=== PATIENT | male | born 1975 | race African-American/Black ===

== ENCOUNTER 2024-08-31 09:22 | Emergency (ER) | payer MEDICAID ==
[~2024-08-31] VITALS: Ht 193 cm; Wt 113.3 kg
[2024-08-31 09:30] VITALS: O2SAT 99
[2024-08-31 10:26] LABS: BASOPHILS % 0.3 % (0.0-2.0); EOSINOPHILS % 2.1 % (0.0-5.0); HEMATOCRIT. 46.3 % (42.0-52.0); HEMOGLOBIN. 15.1 g/dL (14.0-18.0); LYMPHOCYTES % 39.1 % (20.0-50.0); MEAN CORPUSCULAR HEMOGLOBIN 29.9 pg (28.0-32.0); MEAN CORPUSCULAR HGB CONC 32.6 g/dL (31.0-37.0); MEAN CORPUSCULAR VOLUME 91.5 fL (80.0-94.0); MEAN PLATELET VOLUME 7.7 fl (7.4-10.4); MONOCYTES % 8.8 % (2.0-8.0); NEUTROPHILS % 49.7 % (40.0-76.0); PLATELET 230 x1000/uL (130-400); RED BLOOD CELL COUNT 5.06 mill/uL (4.7-6.1); RED CELL DISTRIBUTION WIDTH 13.7 % (11.6-14.6); WHITE BLOOD COUNT 10.1 x1000/uL (4.5-11.0)
[2024-08-31 10:55] LABS: CHLORIDE 106 mEq/L (98-107); SODIUM 140 mEq/L (136-145)
[2024-08-31 10:56] LABS: CALCIUM 9.8 mg/dL (8.7-10.4); CARBON DIOXIDE 26 mEq/L (21-32)
[2024-08-31 11:01] LABS: CREATININE 0.9 mg/dL (0.6-1.3); GLUCOSE 94 mg/dL (70-105); UREA NITROGEN BLOOD 10 mg/dL (9-23)
[2024-08-31 11:03] LABS: ALANINE AMINOTRANSFERASE 14 IU/L (10-49); ALBUMIN 4.3 g/dL (3.2-4.8); ASPARTATE AMINOTRANSFERASE 18 IU/L (<34); BILIRUBIN TOTAL 0.9 mg/dL (0.1-1.0)
[2024-08-31 12:00] VITALS: BP 140/80; PULSE 65; RESP 19; TEMP 36.9; O2SAT 98
[2024-08-31] MEDS: DIPHENHYDRAMINE 50MG/ML VIAL IM STA (12:00)
[2024-08-31] MEDS: METOCLOPRAMIDE HCL 10MG TABLET PO ONE (12:00)
[2024-08-31] MEDS: PROCHLORPERAZINE 10MG/2ML VIAL IM ONE (12:02)
[2024-08-31 12:17] LABS: TROPONIN I HIGH SENSITIVITY < 4 ng/L (3.0-53)
== END 2024-08-31 13:10 | disposition home or self-care (01) ==
LOC: ER 10:41
DX: R51.9 Headache, unspecified (principal); I10 Essential (primary) hypertension; Z88.5 Allergy status to narcotic agent
CPT/HCPCS: 99285; 71045; 80053; 85025; 84484; 36415; 93005; 96372; J8597; J1200; J0780

== ENCOUNTER 2025-02-04 16:18 | Emergency (ER) | payer MEDICAID ==
[~2025-02-04] VITALS: Ht 193 cm; Wt 112.0 kg
[~2025-02-04 16:18] MED LIST: ACET-2708 MT; D-ME473S50 PO; NIRM1TAB11 PO
[2025-02-04 17:00] VITALS: O2SAT 99
[2025-02-04 19:11] LABS: BASOPHILS % 0.5 % (0.0-2.0); EOSINOPHILS % 2.3 % (0.0-5.0); HEMATOCRIT. 43.6 % (42.0-52.0); HEMOGLOBIN. 14.5 g/dL (14.0-18.0); LYMPHOCYTES % 35.9 % (20.0-50.0); MEAN PLATELET VOLUME 7.5 fl (7.4-10.4); MONOCYTES % 10.9 % (2.0-8.0); NEUTROPHILS % 50.4 % (40.0-76.0); PLATELET 241 x1000/uL (130-400); RED BLOOD CELL COUNT 4.85 mill/uL (4.7-6.1); RED CELL DISTRIBUTION WIDTH 13.3 % (11.6-14.6)
[2025-02-04 19:25] LABS: CREATININE 0.8 mg/dL (0.6-1.3); UREA NITROGEN BLOOD 9 mg/dL (9-23)
[2025-02-04] MEDS: AMLODIPINE 10MG TABLET PO STA (20:27)
[2025-02-04 20:29] VITALS: BP 133/110; PULSE 63; RESP 16; TEMP 37.1; O2SAT 100
== END 2025-02-04 20:32 | disposition home or self-care (01) ==
LOC: ER 16:18
DX: I10 Essential (primary) hypertension (principal); Z00.00 Encounter for general adult medical examination without abnormal findings; Z88.5 Allergy status to narcotic agent
CPT/HCPCS: 36415; 80048; 85025; 93005; 99284